=== PATIENT | female | born 1965 | race Caucasian/White ===

== ENCOUNTER → 2016-11-29 | Outpatient (CLI) | payer BC ==
[2014-09-27 09:39] VITALS: BP 169/95
[~2016-11-29] MED LIST: DIVA250T14 PO; LEVO50TA5 PO; LISI1TAB3 PO; LORA1TAB PO; QUET25TA PO
--- NOTE | 2016-11-29 08:58 | RAD ---
Right upper quadrant abdominal ultrasound, 11/29/2016: History: Pain and bloating The gallbladder is within normal limits in size. There is a 4 mm nonmobile focus of increased echogenicity in the superior aspect of the gallbladder without posterior acoustic shadowing. The appearance is that of a polyp. No definite gallstones are seen. The gallbladder carter are not thickened. The common hepatic duct is of normal caliber. There is a 10 mm hyperechoic nodule in the right lobe of the liver. Correlation with the CT study of 05/07/2016 suggests that this is a small hemangioma. No other hepatic lesion is seen. The visualized portions of the right kidney are unremarkable. The pancreatic body is unremarkable. Other portions of the pancreas were obscured by overlying bowel. IMPRESSION: 1. Small gallbladder polyp. 2. Small hyperechoic hepatic lesion most compatible with a hemangioma.
== END | disposition home or self-care (01) ==
LOC: US 07:32
PROVIDERS: ATTEND Family Medicine
DX: K76.89 Other specified diseases of liver (principal); K82.4 Cholesterolosis of gallbladder; R14.0 Abdominal distension (gaseous)
CPT/HCPCS: 76705

== ENCOUNTER → 2016-12-14 | Day surgery (SDC) | payer BC ==
[2014-09-27 09:39] VITALS: BP 169/95
[~2016-12-14] MED LIST changes: +IV RINGERS SOLUTION,LACTATED 1,000 ML IV ONE; +LIDOCAINE 2% SYRINGE 100 MG/5 ML DISP.SYRIN. ONE; +PROPOFOL 40 ML IV ONE
== END | disposition home or self-care (01) ==
LOC: SURG 06:39
PROVIDERS: ATTEND Surgery
DX: D64.9 Anemia, unspecified (principal); I10 Essential (primary) hypertension; E03.9 Hypothyroidism, unspecified; Z98.890 Other specified postprocedural states; Z88.1 Allergy status to other antibiotic agents; Z88.0 Allergy status to penicillin; Z72.89 Other problems related to lifestyle
CPT/HCPCS: 45378; J2704; J7120

== ENCOUNTER → 2017-09-12 | Outpatient (CLI) | payer BC ==
[2014-09-27 09:39] VITALS: BP 169/95
[~2017-09-12] MED LIST changes: -IV RINGERS SOLUTION,LACTATED 1,000 ML IV ONE; -LIDOCAINE 2% SYRINGE 100 MG/5 ML DISP.SYRIN. ONE; +LORA-254 PO; -LORA1TAB PO; -PROPOFOL 40 ML IV ONE
[2017-09-12 10:32] LABS: HEMATOCRIT 41.3 % (36.0-47.0); HEMOGLOBIN 13.9 g/dL (12.0-15.5); MEAN CORPUSCULAR HEMOGLOBIN 31 pg (25-35); MEAN CORPUSCULAR HGB CONC 34 g/dL (31-37); MEAN CORPUSCULAR VOLUME 92 fL (79-100); RED CELL DISTRIBUTION WIDTH 12.4 % (11.5-14.5); WHITE BLOOD COUNT 5.5 x10^3/uL (4.0-11.0)
[2017-09-12 10:33] LABS: BASO % 1 % (0-3); EOS # 0.2 x10^3/uL (0.0-0.7); EOS % 3 % (0-3); LYMPH % 37 % (24-48); MONO # 0.4 x10^3/uL (0.0-1.1); MONO % 7 % (0-9); NEUT # 2.9 x10^3uL (1.8-7.7); NEUT % 53 % (31-73); PLATELET COUNT 403 x10^3/uL (140-400)
[2017-09-12 10:41] LABS: ALBUMIN 3.8 g/dL (3.4-5.0); CALCIUM 9.5 mg/dL (8.5-10.1); CREATININE 0.8 mg/dL (0.6-1.0); POTASSIUM 4.3 mmol/L (3.5-5.1); TOTAL BILIRUBIN 0.6 mg/dL (0.2-1.0); TOTAL PROTEIN 7.6 g/dL (6.4-8.2)
--- NOTE | 2017-09-12 10:57 | RAD ---
EXAM: Abdomen, single view. HISTORY: Distention. COMPARISON: 05/07/2016 FINDINGS: A frontal view of the abdomen is obtained. There are nonspecific air-filled loops of bowel within the abdomen. There is no abnormally dilated loop of bowel. There is no transition point to suggest obstruction. There are anastomotic sutures within the pelvis. There are multiple pelvic phleboliths. IMPRESSION: Nonspecific bowel gas pattern, without evidence of obstruction. Electronically signed by: Jody De Jesus MD (09/12/2017 10:54 AM) [facility]
[2017-09-12 11:46] LABS: % BANDS 0 % (0-9); % BASOS 2 % (0-3); % EOS 2 % (0-5); % LYMPHS 40 % (24-48); % MONOS 4 % (0-10); % SEGS 52 % (35-66); PLT ESTIMATE ADEQUATE (ADEQUATE)
--- NOTE | 2017-09-12 14:53 | RAD ---
Limited ultrasound abdomen 09/12/2017 INDICATION: Abdominal distention. COMPARISON: CT abdomen/pelvis September 25, 2014 TECHNIQUE: Sonographic evaluation of the abdomen was performed utilizing grayscale and color Doppler. FINDINGS: Visualized portions of the head and proximal body of the pancreas appear normal. Distal body and tail are obscured by bowel gas. There is a 8 x 8 x 8 mm hyperechoic lesion in the right hepatic lobe, stable dating back to November 29, 2016. Findings favor benign etiology such as a hemangioma in the absence of underlying malignancy. There is hepatopedal flow within the portal venous system. Gallbladder contains a 4 mm polyp. No mobile gallstones are identified. No gallbladder wall thickening or pericholecystic fluid. IVC is normal in appearance. Right kidney measures 10.2 x 5.3 x 4.6 cm. No suspicious abnormalities visualized. No hydronephrosis or renal calculi. No ascites noted in the right lower quadrant and left lower quadrant. IMPRESSION: 1. Stable 8 x 8 x 8 mm hyperechoic lesion in the right hepatic lobe most suggestive of a hemangioma. 2. Stable 4 mm gallbladder polyp. 3. No abdominal ascites. Electronically signed by: Elis Corrales MD (09/12/2017 2:50 PM) [facility]
== END | disposition home or self-care (01) ==
LOC: US 08:46
PROVIDERS: ATTEND Family Medicine
DX: R14.0 Abdominal distension (gaseous) (principal); I10 Essential (primary) hypertension; E03.9 Hypothyroidism, unspecified
CPT/HCPCS: 36415; 74018; 76705; 80053; 85007; 85025; 86705; 86709; 86803; 87340

== ENCOUNTER 2020-11-05 16:53 | Emergency (ER) | payer BC ==
[~2020-11-05] VITALS: Ht 162.6 cm; Wt 67.2 kg
[~2020-11-05 16:53] MED LIST changes: +LISI1TAB23 PO; -LISI1TAB3 PO; -QUET25TA PO; +QUET25TA3 PO
[2020-11-05 17:00] VITALS: BP 145/61
--- NOTE | 2020-11-05 17:33 | PHYS DOC ---
General Adult EDM: Chief Complaint: MECHANICAL FALL HPI: HPI: Patient is a 55-year-old female who presents to the ER following a fall. Patient states that she was leaving [employer] when she fell and landed on her bilateral wrists and knee. Patient denies hitting head or loss of consciousness. Patient states she was able to bear weight and ambulate following fall. Patient denies any decreased sensation in her extremities. (PABLO DHILLON APRN) Review of Systems: Review of Systems: 14 body systems of the review of systems have been reviewed. See HPI for pertinent positive and negative responses, otherwise all other systems are negative, nonpertinent or noncontributory (PABLO DHILLON APRN) Allergies: Allergies: Allergies Coded Allergies Type Severity Reaction Last Updated Verified Penicillins Allergy Intermediate 05/07/16 Yes erythromycin base Allergy Intermediate 05/07/16 Yes codeine Allergy Mild 05/07/16 Yes (PABLO DHILLON APRN) Physical Exam: PE: Constitutional: Well developed, well nourished, no acute distress, non-toxic appearance. [] HENT: Normocephalic, atraumatic Eyes: PERRL, EOMI, conjunctiva normal, no discharge. [] Neck: Normal range of motion, no tenderness, supple, no stridor. [] Cardiovascular: Normal peripheral perfusion Lungs & Thorax: Normal work of breathing, no tachypnea Abdomen: Bowel sounds normal, soft, no tenderness, no masses, no pulsatile masses. [] Skin: Warm, dry, no erythema, no rash, abrasions noted to right ankle and bilateral knees Back: Normal range of motion Extremities: No tenderness, no cyanosis, no clubbing, ROM intact, no edema. Left hand: Ecchymosis noted to palmar aspect of left hand proximal to thumb, range of motion intact, neurovascularly intact. Bilateral knees: Abrasions noted to anterior aspect of bilateral knees, range of motion intact and neurovascularly intact. Right ankle: Abrasion noted to lateral aspect of right ankle, range of motion intact, neurovascularly intact. Neurologic: Alert and oriented X 3, normal motor function, normal sensory function, no focal deficits noted. [] Psychologic: Affect normal, judgement normal, mood normal. [] (PABLO DHILLON APRN) EKG: EKG: [] (PABLO DHILLON APRN) Radiology/Procedures: Radiology/Procedures: PROCEDURE: KNEE BILAT 3V Three-view bilateral knee and three-view right ankle dated 11/05/2020. No comparison available. Clinical data indication: Pain after fall. FINDINGS: 3 views bilateral knee show normal bony alignment. No displaced fracture. No periostitis or bone destruction. No apparent joint effusion or loose body. 3 views of the right ankle show normal bony alignment. No displaced fracture. There is mild soft tissue swelling. The talar dome is intact. Small plantar spur. IMPRESSION: No acute findings. Electronically signed by: Micah Galaviz MD (11/05/2020 6:05 PM) [facility] DICTATED AND SIGNED BY: MICAH GALAVIZ MD DATE: 11/05/201803 CC: EDWARD WATSON MD; PABLO DHILLON APRN ~MTH0 0[] PROCEDURE: WRIST BILAT 3V Three-view bilateral wrist dated 11/05/2020. No comparison available. CLINICAL INDICATION: Pain. FINDINGS: 3 views bilateral wrist show normal bony alignment. No displaced fracture. No acute osseous or articular abnormality. No periostitis or bone destruction. IMPRESSION: No acute findings. Electronically signed by: Micah Galaviz MD (11/05/2020 6:06 PM) [facility] DICTATED AND SIGNED BY: MICAH GALAVIZ MD DATE: 11/05/201804 CC: EDWARD WATSON MD; PABLO DHILLON APRN ~MTH0 0 (PABLO DHILLON APRN) Heart Score: C/O Chest Pain: No Risk Factors: Risk Factors: DM, Current or recent (<one month) smoker, HTN, HLP, family history of CAD, obesity. Risk Scores: Score 0 - 3: 2.5% MACE over next 6 weeks - Discharge Home Score 4 - 6: 20.3% MACE over next 6 weeks - Admit for Clinical Observation Score 7 - 10: 72.7% MACE over next 6 weeks - Early Invasive Strategies (PABLO DHILLON APRN) Course & Med Decision Making: Course & Med Decision Making Pertinent Labs and Imaging studies reviewed. (See chart for details) Patient is a 55-year-old female being seen in the ER for fall. Patient is complaining of bilateral wrist and knee pain and right ankle pain. Images were performed and they were negative for any acute findings. Patient advised to take Tylenol and ibuprofen for pain and apply ice. Patient vies follow-up with a primary care provider. I discussed with patient all findings and diagnostic testing as well as the need to follow-up with PCP for further evaluation and treatment or return to the ER if any new or worsening symptoms. Strict return precautions were also discussed at length. Patient voiced understanding and agreement with the plan. Patient is hemodynamically stable at the time of disposition. (PABLO DHILLON APRN) Course & Med Decision Making Did not see or evaluate patient. Agree with DESIGN SALES CONSULTANT's work-up and disposition per note. (DARIUS ALANIS MD) Dragon Disclaimer: Dragon Disclaimer: This electronic medical record was generated, in whole or in part, using a voice recognition dictation system. (PABLO DHILLON APRN) Departure Departure: Impression: Primary Impression: Fall Disposition: HOME / SELF CARE / HOMELESS Condition: GOOD Referrals: EDWARD WATSON MD (PCP) Patient Instructions: Contusion, RICE - Routine Care for Injuries Additional Instructions: You were seen in the ER following a fall. X-rays were performed and they were negative for any acute findings. Keep your abrasions clean and dry. You can apply Polysporin or bacitracin and a bandage. Take Tylenol/ibuprofen for pain at home. You can also apply ice. If you develop any swelling elevation will help. Follow-up with your primary care provider next week regarding your ER visit. If you develop any worsening of your pain, inability to bear weight or ambulate, increased swelling, decreased range of motion or decreased sensation in your extremities please return to the ER immediately. EMERGENCY DEPARTMENT GENERAL DISCHARGE INSTRUCTIONS Thank you for coming to [facility] (ED) today and trusting us with you care. We trust that you had a positivie experience in our Emergency Department. If you wish to speak to the department management, you may call the director at [phone]. YOUR FOLLOW UP INSTRUCTIONS ARE FOLLOWS: 1. Do you have a private Doctor? If you do not have a private doctor, please ask for a resource list of physicians or clinics that may be able to assist you with f ollow up care. 2. The Emergency Physician has interpreted your x-rays. The X-Ray specialist will also review them. If there is a change in the findings, you will be notified in 48 hours when at all possible. 3. A lab test or culture has been done, your results will be reviewed and you will be notified if you need a change in treatment. ADDITIONAL INSTRUCTIONS AND INFORMATION: 1. Your care today has been supervised by a physician who is specially trained in emergency care. Many problems require more than one evaluation for a complete diagnosis and treatment. We recommend that you schedule your follow up appointment as recommended to ensure complete treatment of you illness or injury. If you are unable to obtain follow up care and continue to have a problem, or if your condition worsens, we recommend that you return to the ED. 2. We are not able to safely determine your condition over the phone nor are we able to give sound medical advice over the phone. For these safety reasons, if you call for medical advice we will ask you to come to the ED for further evaluation. 3. If you have any questions regarding these discharge instructions please call the ED at [phone]. SAFETY INFORMATION: In the interest of safety, wellness, and injury prevention; we encourage you to wear your sealbelt, if you smoke; quite smoking, and we encourage family to use a protect bhavana helmet for bicycling and other sporting events that present an increased risk for head injury. IF YOUR SYMPTOMS WORSEN OR NEW SYMPTOMS DEVELOP, OR YOU HAVE CONCERNS ABOUT YOUR CONDITION; OR IF YOUR CONDITION WORSENS WHILE YOU ARE WAITING FOR YOUR FOLLOW UP APPOINTMENT; EITHER CONTACT YOUR PRIMARY CARE DOCTOR, THE PHYSICIAN WHOSE NAME AND NUMBER YOU WERE GIVEN, OR RETURN TO THE ED IMMEDIATELY. PABLO DHILLON APRN Nov 05, 2020 17:33 DARIUS ALANIS MD Nov 05, 2020 18:59
--- NOTE | 2020-11-05 18:08 | RAD ---
Three-view bilateral knee and three-view right ankle dated 11/05/2020. No comparison available. Clinical data indication: Pain after fall. FINDINGS: 3 views bilateral knee show normal bony alignment. No displaced fracture. No periostitis or bone dest ruction. No apparent joint effusion or loose body. 3 views of the right ankle show normal bony alignment. No displaced fracture. There is mild soft tiss ue swelling. The talar dome is intact. Small plantar spur. IMPRESSION: No acute findings. Electronically signed by: Micah Galaviz MD (11/05/2020 6:05 PM) [facility]
--- NOTE | 2020-11-05 18:08 | RAD ---
Three-view bilateral wrist dated 11/05/2020. No comparison available. CLINICAL INDICATION: Pain. FINDINGS: 3 views bilateral wrist show normal bony alignment. No displaced fracture. No acute osseous or articu lar abnormality. No periostitis or bone destruction. IMPRESSION: No acute findings. Electronically signed by: Micah Galaviz MD (11/05/2020 6:06 PM) [facility]
== END 2020-11-05 18:20 | disposition home or self-care (01) ==
LOC: ER 16:53
DX: S90.511A Abrasion, right ankle, initial encounter (principal); S80.212A Abrasion, left knee, initial encounter; S80.211A Abrasion, right knee, initial encounter; S60.812A Abrasion of left wrist, initial encounter; S60.811A Abrasion of right wrist, initial encounter; Z88.0 Allergy status to penicillin; Z88.1 Allergy status to other antibiotic agents; Z88.5 Allergy status to narcotic agent; W18.39XA Other fall on same level, initial encounter; Y93.89 Activity, other specified; Y92.89 Other specified places as the place of occurrence of the external cause; Y99.8 Other external cause status
CPT/HCPCS: 73610; 73110-50; 73562-50; 99284-25

== ENCOUNTER 2020-12-12 17:41 | Emergency (ER) | payer BC ==
[~2020-12-12] VITALS: Ht 162.6 cm; Wt 67.2 kg
[2020-12-12 18:50] VITALS: BP 130/90
--- NOTE | 2020-12-12 19:21 | PHYS DOC ---
Past History Past Surgical History: No Surgical History Alcohol Use: None Adult General Chief Complaint Chief Complaint: DIARRHEA HPI HPI Patient is a 55 year old female who presents with request to dispense propranolol tablet. Patient was admitted at [facility] in [place] for hyponatremia and was treated. She subsequently was admitted to mental health institution for her anxiety. She was released from there this afternoon with appropriate medication regimen. Patient states that she feels much stable and calm, denies any anxiety or suicidal ideation. She stated that she was not able to fill her propranolol this evening and wanted to come to emergency department to see if we can release her with 1 tablet that she needs to take at 9 PM today. While she initially had complained of diarrhea, she explains that she has had loose stool 4 days and and is in the process of following up with a drapery estimator through her primary care physician. She has new complaint of abdominal pain, fatigue, nausea or vomiting. She has been eating and drinking normally. She is on nifedipine extended release for blood pressure and is on propranolol for both anxiety and blood pressure. She further states that when she takes propranolol she feels much stable and that is the reason she did not want to skip evening's dose. She has no other complaints. Review of Systems Review of Systems Constitutional: Denies fever or chills Eyes: Denies change in visual acuity, redness, or eye pain HENT: Denies nasal congestion or sore throat Respiratory: Denies cough or shortness of breath Cardiovascular: No additional information not addressed in HPI GI: Denies abdominal pain, nausea, vomiting, bloody stools or diarrhea : Denies dysuria or hematuria Musculoskeletal: Denies back pain or joint pain Integument: Denies rash or skin lesions Neurologic: Denies headache, focal weakness or sensory changes Endocrine: Denies polyuria or polydipsia All other systems were reviewed and found to be within normal limits, except as documented in this note. Allergies Allergies Allergies Coded Allergies Type Severity Reaction Last Updated Verified Penicillins Allergy Intermediate 05/07/16 Yes erythromycin base Allergy Intermediate 05/07/16 Yes codeine Allergy Mild 05/07/16 Yes Physical Exam Physical Exam Constitutional: Well developed, well nourished, no acute distress, non-toxic appearance. HENT: Normocephalic, atraumatic, bilateral external ears normal, oropharynx moist, no oral exudates, nose normal. Eyes: PERRLA, EOMI, conjunctiva normal, no discharge. Neck: Normal range of motion, no tenderness, supple, no stridor. Cardiovascular:Heart rate regular rhythm, no murmur Lungs & Thorax: Bilateral breath sounds clear to auscultation Abdomen: Bowel sounds normal, soft, no tenderness, no masses, no pulsatile masses. Skin: Warm, dry, no erythema, no rash. Back: No tenderness, no CVA tenderness. Extremities: No tenderness, no cyanosis, no clubbing, ROM intact, no edema. Neurologic: Alert and oriented X 3, normal motor function, normal sensory function, no focal deficits noted. Psychologic: Affect normal, judgement normal, mood normal. Denies any suicidal ideation. Current Patient Data Vital Signs Vital Signs Date Time Temp Pulse Resp B/P (MAP) Pulse Ox O2 Delivery O2 Flow Rate FiO2 12/12/20 18:50 98.3 85 18 130/90 (103) 97 Room Air EKG EKG [] Radiology/Procedures Radiology/Procedures [] Heart Score C/O Chest Pain: No Risk Factors: Risk Factors: DM, Current or recent (<one month) smoker, HTN, HLP, family h istory of CAD, obesity. Risk Scores: Risk Factors: DM, Current or recent (<one month) smoker, HTN, HLP, family history of CAD, obesity. Course & Med Decision Making Course & Med Decision Making Pertinent Labs and Imaging studies reviewed. (See chart for details) Patient presented with initially at triage complaining of diarrhea however as stated in HPI, patient really does not have any acute change in her loose bowel movement and certainly does not have diarrhea. She is fully able to tolerate oral diet without any difficulty. She further states that she has been discharged this afternoon from [facility] and just wanted to ensure that she gets her propranolol dose for tonight. While I am not able to dispense propranolol from the emergency department, I did offer to give her a tablet here which she states is not needed as she normally takes propranolol at 9 PM at night. She further told me that she does have access to 20 mg of propranolol that was previously prescribed to her in is able to cut it in half. I have instructed her that that would be okay and she is going to do that when needed tonight to take her normal medication. She request to be discharge, no further work-up is necessary tonight. Patient is hemodynamically stable, mentally stable and has normal vital signs. She is not suicidal and has no carlos alberto lent thoughts. She has no anxiety. Dragon Disclaimer Dragon Disclaimer This electronic medical record was generated, in whole or in part, using a voice recognition dictation system. Departure Departure: Impression: Primary Impression: Normal exam Disposition: HOME / SELF CARE / HOMELESS Condition: STABLE Referrals: EULALIO HOBBS MD (PCP) Follow-up in 1 to 2 days. SILAS DUTTA MD Dec 12, 2020 19:21
== END 2020-12-12 19:28 | disposition home or self-care (01) ==
LOC: ER 17:41
DX: Z00.00 Encounter for general adult medical examination without abnormal findings (principal); R19.7 Diarrhea, unspecified; R10.9 Unspecified abdominal pain; R53.83 Other fatigue; Z88.0 Allergy status to penicillin; Z88.1 Allergy status to other antibiotic agents; Z88.5 Allergy status to narcotic agent
CPT/HCPCS: 99281